=== PATIENT | male | born 1985 | race African-American/Black ===

== ENCOUNTER 2020-04-29 18:38 | Outpatient (REF) | payer SELFPAY ==
[2020-05-02 09:38] LABS: COVID-19 RT-PCR Result NEGATIVE (Negative)
== END 2020-04-29 18:58 ==
LOC: NCHCN 18:38
PROVIDERS: PCP Nurse Practitioner Family; Visit Provider Nurse Practitioner Family
DX: Z20.828 Contact with and (suspected) exposure to other viral communicable diseases (principal)
CPT/HCPCS: U0003

== ENCOUNTER → 2020-06-27 15:23 | Outpatient (REF) | payer SELFPAY ==
[2020-06-27 18:38] LABS: HCT 44.8 % (40.0-50.0); HGB 14.7 g/dL (13.5-17.5); MCH 26.8 pg (27.0-33.0); MCHC 32.8 % (32.0-36.0); MCV 81.8 fL (80-95); MPV 10.5 fL (8.0-11.0); Platelet Count 385 10^3/uL (130-400); RBC 5.48 10^6/uL (4.36-5.78); RDW 12.6 % (11.8-14.1); WBC 4.32 10^3/uL (4.4-10.8)
[2020-06-27 19:08] LABS: ALT 60 U/L (16-63); AST 29 U/L (15-37); Albumin 4.1 g/dL (3.4-5.0); Alkaline Phosphatase 109 U/L (46-116); Anion Gap 7.9 mmol/L (3-11); BUN 14 mg/dL (7-18); Bilirubin, Total 0.7 mg/dL (0.2-1.0); CO2 27.1 mmol/L (21.0-32.0); CREATININE 0.9 mg/dL (0.70-1.30); Calcium 9.2 mg/dL (8.5-10.1); Calculated LDL 131 mg/dL (<100); Chloride 104 mmol/L (98-107); Cholesterol 191 mg/dL (<200); Glucose 77 mg/dL (74-106); HDL Cholesterol 38 mg/dL (40-60); Potassium 4.5 mmol/L (3.5-5.1); Sodium 139 mmol/L (136-145); TSH (W/Ref FT4) 1.17 uIU/mL (0.36-3.74); Total Protein 8.3 g/dL (6.4-8.2); Triglyceride 110 mg/dL (<150)
[2020-06-30 09:51] LABS: HIV-1/2 Ag & Ab Screen Negative (Negative)
[2020-06-30 11:59] LABS: Hepatitis C Ab w Rflx HCV PCR Negative (Negative)
== END ==
LOC: NCHCN 15:23
PROVIDERS: PCP Nurse Practitioner Family; Visit Provider Nurse Practitioner Family
DX: Z13.29 Encounter for screening for other suspected endocrine disorder (principal); Z13.0 Encounter for screening for diseases of the blood and blood-forming organs and certain disorders involving the immune mechanism; Z13.220 Encounter for screening for lipoid disorders; Z11.4 Encounter for screening for human immunodeficiency virus [HIV]; Z11.59 Encounter for screening for other viral diseases; Z13.228 Encounter for screening for other metabolic disorders
CPT/HCPCS: 80053; 80061; 85027; 86803; 87389; 84443